=== PATIENT | male | born 1970 | race African-American/Black ===

== ENCOUNTER 2020-04-02 12:50 | Emergency (ER) | payer MEDICAID ==
[~2020-04-02] VITALS: Ht 182.9 cm; Wt 102.0 kg
[2020-04-02] MEDS ORDERED: SODIUM CHLORIDE 0.9% 1,000 ML IV ONE (13:15)
[2020-04-02 14:24] LABS: BASOPHILS % 0.6 % (0.0-2.0); EOSINOPHILS % 2.5 % (0.0-5.0); HEMATOCRIT. 41.5 % (42.0-52.0); HEMOGLOBIN. 13.7 g/dL (14.0-18.0); LYMPHOCYTES % 24.3 % (20.0-50.0); MEAN CORPUSCULAR HEMOGLOBIN 29.1 pg (28.0-32.0); MEAN CORPUSCULAR VOLUME 88.3 fL (80.0-94.0); MEAN PLATELET VOLUME 8.2 fl (7.4-10.4); MONOCYTES % 9.4 % (2.0-8.0); NEUTROPHILS % 63.2 % (40.0-76.0); PLATELET 297 x1000/uL (130-400); RED CELL DISTRIBUTION WIDTH 14.8 % (11.6-14.6)
[2020-04-02 14:28] LABS: CLARITY URINE CLEAR (CLEAR); KETONES URINE NEGATIVE (NEGATIVE); LEUKOCYTE ESTERASE URINE NEGATIVE (NEGATIVE); NITRITE URINE NEGATIVE (NEGATIVE); OCCULT BLOOD URINE NEGATIVE (NEGATIVE); PH URINE 6.5 (4.5-8.0); PROTEIN URINE NEGATIVE (NEGATIVE); SPECIFIC GRAVITY URINE 1.001 (1.005-1.030); UROBILINOGEN URINE 0.2 E.U./dL (0.2-1.0)
[2020-04-02 14:30] LABS: COLOR URINE STRAW (YELLOW)
[2020-04-02 14:31] LABS: CHLORIDE 107 mEq/L (98-107)
[2020-04-02 14:35] LABS: ETHANOL BLOOD 46 mg/dL
[2020-04-02 14:40] LABS: *BARBITURATES SCREEN URINE NEGATIVE (NEGATIVE); CANNABINOID URINE SCREEN NEGATIVE (NEGATIVE); PHENCYCLIDINE URINE SCREEN PRESUMTIVE POSITIVE (NEGATIVE)
[2020-04-02 14:41] LABS: *AMPHETAMINES SCREEN URINE NEGATIVE (NEGATIVE); *BENZODIAZEPINES SCREEN URINE NEGATIVE (NEGATIVE); *COCAINE SCREEN URINE PRESUMTIVE POSITIVE (NEGATIVE); METHADONE URINE SCREEN NEGATIVE (NEGATIVE); OPIATES URINE SCREEN NEGATIVE (NEGATIVE)
[2020-04-02] MEDS ORDERED: ONDANSETRON 4MG ODT PO ONE (17:45)
[2020-04-02 18:06] VITALS: BP 131/82
== END 2020-04-02 18:15 | disposition home or self-care (01) ==
LOC: ER 12:50 → EDBD 12:50 → ER 18:15
DX: T40.991A Poisoning by other psychodysleptics [hallucinogens], accidental (unintentional), initial encounter (principal); F16.188 Hallucinogen abuse with other hallucinogen-induced disorder; T40.5X1A Poisoning by cocaine, accidental (unintentional), initial encounter; F14.188 Cocaine abuse with other cocaine-induced disorder; R41.82 Altered mental status, unspecified; Y93.89 Activity, other specified; R79.89 Other specified abnormal findings of blood chemistry; Y92.521 Bus station as the place of occurrence of the external cause; Z59.0 Homelessness
CPT/HCPCS: 36415; 71045; 80053; 80305; 80307; 80320; 80329; 81003; 82140; 82962; 84443; 85025; 93005; 96360; 96361; 99285; J7030; Q0162; G0480

== ENCOUNTER 2020-04-18 21:23 | Emergency (ER) | payer MEDICAID ==
[~2020-04-18] VITALS: Ht 170.2 cm; Wt 82.0 kg
[2020-04-18] MEDS ORDERED: KETOROLAC 30MG/ML VIAL IV STA (22:09)
[2020-04-18] MEDS ORDERED: SODIUM CHLORIDE 0.9% 1,000 ML IV ONE (22:15)
[2020-04-18] MEDS ORDERED: ETOMIDATE 2MG/ML 10ML VIAL IV ONE (22:15)
[2020-04-18] MEDS ORDERED: ONDANSETRON HCL 4MG/2ML INJ IV ONE (22:15)
[2020-04-19] MEDS ORDERED: PROPOFOL 200MG/20ML VIAL IV ONE
[2020-04-19] MEDS ORDERED: ONDANSETRON HCL 4MG/2ML INJ IV ONE
[2020-04-19] MEDS ORDERED: IBUP-2028 MT (01:44)
[2020-04-19 03:10] VITALS: BP 131/75
== END 2020-04-19 03:13 | disposition home or self-care (01) ==
LOC: ER 21:23
DX: S43.014A Anterior dislocation of right humerus, initial encounter (principal); S09.8XXA Other specified injuries of head, initial encounter; I49.9 Cardiac arrhythmia, unspecified; W01.0XXA Fall on same level from slipping, tripping and stumbling without subsequent striking against object, initial encounter; Y93.89 Activity, other specified; Y92.89 Other specified places as the place of occurrence of the external cause; Y99.8 Other external cause status
CPT/HCPCS: 70450; 73030; 93005; 99285; J1885; J2405; J2704; J3490; J7030; L3670